=== PATIENT | male | born 1990 | race Caucasian/White ===

== ENCOUNTER 2017-02-27 20:00 | Emergency (ER) | payer OTHER ==
[~2017-02-27] VITALS: Ht 180.3 cm; Wt 82.5 kg
[2017-02-27 20:04] VITALS: Ht 180.3 cm; Wt 82.5 kg
[2017-02-27 21:25] LABS: URINE BLOOD (Dip) POC Negative (NEGATIVE)
--- NOTE | 2017-02-27 22:55 | RADRPT ---
PROCEDURE: Testicle ultrasound with power Doppler. CLINICAL INDICATION: Scrotal pain. TECHNIQUE: Multiple sonographic images of the scrotal region were obtained utilizing a linear arra y transducer with grayscale and color-flow and a Doppler imaging. The images were reviewed on a high -resolution PACS workstation. COMPARISON: None. FINDINGS: Bilateral testicles are normal in size, contour, echogenicity and echotexture. The right testicle m easures 3.8 x 2.3 x 2.4 cm and the left testicle measures 4.2 x 1.9 x 2.7 cm. Testicle arterial and venous flow are normal. There is no evidence of testicular mass or torsion. There is no evidence of orchitis. Bilateral epididymi are normal in size, contour, position and echogenicity. The right epididymis me asures 10.4 x 9.0 x 8.7 mm the left epididymis measures 9.1 x 10.0 x 8.5 mm. There is no evidence of epididymitis. There is no significant hydrocele or varicocele. Scrotal soft tissues are unremarka ble. IMPRESSION: Unremarkable testicular ultrasound. .Watson Burgos MD, MD Date Time Electronically viewed and signed by .Watson Burgos MD, MD on 02/27/2017 22:55 .T/
[2017-02-27] MEDS ORDERED: IBUP-1542 PO (23:10)
[2017-02-27 23:22] VITALS: BP 119/78; PULSE 75; RESP 18
--- NOTE | 2017-02-28 06:28 | ERD ---
ER Documentation Chief Complaint Date/Time DATE: 02/28/17 TIME: 06:24 Chief Complaint lower abd pain with groin area pain x 2 weeks HPI 26-year-old male complaining of left groin pain 2 weeks. Patient stated that the symptom initially present as "funny sensation" and discomfort. It has progressing to throbbing pain, and now sharp pain in the left groin. The pain comes and goes, lasting about 5-10 minutes each. There is no provocation of pain. Patient stated that he had a STD check 1 month ago, and was tested positive for chlamydia. Both he and his partner had received azithromycin 1 g p.o. treatment. Repeat testing 2 weeks ago was negative. Denies fever or chills. Denies dysuria. Denies penile discharge. ROS All systems reviewed and are negative except as per history of present illness. Medications Home Meds Active Scripts Ibuprofen* (Motrin*) 600 Mg Tab, 600 MG PO Q6H Y for PAIN AND OR ELEVATED TEMP, #30 TAB Prov:ELISEO CORTEZ DISPLAY MANAGER 02/27/17 Allergies Allergies: Coded Allergies: No Known Allergy (Unverified , 02/27/17) PMhx/Soc Medical and Surgical Hx: pt denies Medical Hx, pt denies Surgical Hx Hx Alcohol Use: No Hx Substance Use: No Hx Tobacco Use: No Smoking Status: Never smoker Physical Exam Vitals Vital Signs Date Time Temp Pulse Resp B/P Pulse Ox O2 Delivery O2 Flow Rate FiO2 02/27/17 23:22 75 18 119/78 99 Room Air 02/27/17 20:04 96.2 81 20 131/71 99 Physical Exam General: Well-developed, well-nourished, conscious and coherent, in no distress Skin: Warm and dry without rash, good texture and turgor Head: Normocephalic without evidence of trauma Eyes: Sclera and conjunctivae normal; pupils equal, round, and reactive to light; extraocular movements are intact Chest: Normal AP diameter. Good expansion without retractions. Nontender. Lungs are clear to auscultate bilaterally with good tidal volume Heart: Regular rate and rhythm. No murmur, rub, or gallops heard Abdomen: Soft and nontender without masses, guarding, or rebound. Bowel sounds are active. No hepatosplenomegaly : Uncircumsized male. Penis normal, no penile discharge. Normal scrotum, no mass noted. No inguinal hernia. Extremities: Full range of motion. Good strength bilaterally. No clubbing, cyanosis, or edema. Peripheral pulses are intact. Sensation intact Neuro: Alert and oriented 4, GCS 15. Cranial nerves grossly intact. Motor and sensory exams nonfocal. Moves all extremities. Speech clear. Gait normal Results 24 hrs Laboratory Tests Test 02/27/17 21:31 Bedside Urine pH (LAB) 6.0 Bedside Urine Protein (LAB) Trace Bedside Urine Glucose (UA) Negative Bedside Urine Ketones (LAB) Negative Bedside Urine Blood Negative Bedside Urine Nitrite (LAB) Negative Bedside Urine Leukocyte Esterase (L Negative PROCEDURE: Testicle ultrasound with power Doppler. CLINICAL INDICATION: Scrotal pain. TECHNIQUE: Multiple sonographic images of the scrotal region were obtained utilizing a linear array transducer with grayscale and color-flow and a Doppler imaging. The images were reviewed on a high-resolution PACS workstation. COMPARISON: None. FINDINGS: Bilateral testicles are normal in size, contour, echogenicity and echotexture. The right testicle measures 3.8 x 2.3 x 2.4 cm and the left testicle measures 4.2 x 1.9 x 2.7 cm. Testicle arterial and venous flow are normal. There is no evidence of testicular mass or torsion. There is no evidence of orchitis. Bilateral epididymi are normal in size, contour, position and echogenicity. The right epididymis measures 10.4 x 9.0 x 8.7 mm the left epididymis measures 9.1 x 10.0 x 8.5 mm. There is no evidence of epididymitis. There is no significant hydrocele or varicocele. Scrotal soft tissues are unremarkable. IMPRESSION: Unremarkable testicular ultrasound. .Watson Burgos MD, MD Date Time Electronically viewed and signed by .Watson Burgos MD, MD on 02/27/2017 22:55 .T/ CC: ELISEO CORTEZ. DISPLAY MANAGER Procedures/MDM Well-appearing 26-year-old male presenting with on and off for left groin pain 2 weeks. Scrotal ultrasound is negative for orchitis, epididymitis, or testicular torsion. Urine dip is negative for urinary tract infection. Since patient already being treated for chlamydia infection, I doubt that is because of patient's pain. I sent his urine out for repeat Chlamydia gonorrhea testing. At this point it is uncertain the cause of patient's pain. Patient given referral to [facility] for follow-up. Patient appears well, stable for discharge and outpatient management. Medical decision making shared with patient and family. Education provided to patient and family. Patient and family expressed understanding of the plan. Medications on discharge: Ibuprofen. Follow-up: Primary care provider in 2-3 days or return to ED if worse. Disclaimer: Inadvertent spelling and grammatical errors are likely due to EHR/ dictation software use and do not reflect on the overall quality of patient care. Also, please note that the electronic time recorded on this note does not necessarily reflect the actual time of the patient encounter. Departure Diagnosis: Primary Impression: Left groin pain Condition: Good Patient Instructions: Groin Strain Referrals: [facility] YOU HAVE RECEIVED A MEDICAL SCREENING EXAM AND THE RESULTS INDICATE THAT YOU DO NOT HAVE A CONDITION THAT REQUIRES URGENT TREATMENT IN THE EMERGENCY DEPARTMENT. FURTHER EVALUATION AND TREATMENT OF YOUR CONDITION CAN WAIT UNTIL YOU ARE SEEN IN YOUR DOCTORS OFFICE WITHIN THE NEXT 1-2 DAYS. IT IS YOUR RESPONSIBILITY TO MAKE AN APPOINTMENT FOR FOLOW-UP CARE. IF YOU HAVE A PRIMARY DOCTOR --you should call your primary doctor and schedule an appointment IF YOU DO NOT HAVE A PRIMARY DOCTOR YOU CAN CALL OUR PHYSICIAN REFERRAL HOTLINE AT IF YOU CAN NOT AFFORD TO SEE A PHYSICIAN YOU CAN CHOSE FROM THE FOLLOWING [facility] [address] [facility]. [facility] [address] [facility] [facility] [address] [facility] [facility] [address] [facility]. [facility] [address] [facility]. [facility]. [address] Additional Instructions: Call your primary care doctor TOMORROW for an appointment during the next 2-3 days.See the doctor sooner or return here if your condition worsens before your appointment time. ELISEO CORTEZ. SHAILESH Feb 28, 2017 06:28
[2017-03-01 16:09] LABS: URINE BLOOD (Dip) POC Negative (NEGATIVE)
== END 2017-02-27 23:23 | disposition home or self-care (01) ==
LOC: FTE 20:00
DX: R10.30 Lower abdominal pain, unspecified (principal)
CPT/HCPCS: 76870; 81003; 87591

== ENCOUNTER 2019-03-12 14:58 | Inpatient (IN) | payer OTHER ==
[~2019-03-12] VITALS: Ht 182.9 cm; Wt 88.4 kg
[~2019-03-12 14:58] MED LIST: ACET325T33 PO; AMOX500T PO; CEPH500C PO; IBUP-1542 PO; OXYC-438 PO
[2019-03-12 15:05] VITALS: Ht 182.9 cm; Wt 88.4 kg
[2019-03-12] MEDS ORDERED: SOD CHLORIDE 0.9% 1,000 ML IV STA (15:59)
[2019-03-12] MEDS ORDERED: FAMOTIDINE 20 MG TAB PO STA (15:59)
[2019-03-12] MEDS ORDERED: ONDANSETRON 4 MG INJ IV STA ×2 (15:59→17:45)
[2019-03-12] MEDS ORDERED: ACETAMINOPHEN 325 MG TAB PO ONE (16:00)
--- NOTE | 2019-03-12 16:06 | ERD ---
ER Documentation Chief Complaint Chief Complaint right lower quad pain x today;diarrhea; n/v HPI Patient is a 28 years old male with no known past medical history presenting to the ED for diffuse abdominal pain which is worse on the right lower quadrant pain, nausea, watery diarrhea, and single episode of NBNB emesis prior to ED vi sit. Patient admits to visiting [place] 3 weeks ago and reports eating anything and everything. Patient reports the symptoms came about 2 weeks ago after returning back from [place]. Patient reports the symptoms are relatively mild however symptoms worsened as of yesterday. Patient admits to getting a dental procedure 3 days ago and is currently on amoxicillin. Patient admits to new onset of fever and chills as of yesterday. Denies constipation, diarrhea, hematochezia, flank pain, pyrosis, night sweats. ROS All systems reviewed and are negative except as per history of present illness. Medications Home Meds Active Scripts Ibuprofen* (Motrin*) 600 Mg Tab, 600 MG PO Q6H PRN for PAIN AND OR ELEVATED TEMP, #30 TAB Prov:ELISEO CORTEZ CAPACITY ANALYST 02/27/17 Allergies Allergies: Coded Allergies: No Known Allergy (Unverified , 02/27/17) PMhx/Soc History of Surgery: No Anesthesia Reaction: No Hx Neurological Disorder: No Hx Respiratory Disorders: No Hx Cardiac Disorders: No Hx Psychiatric Problems: No Hx Miscellaneous Medical Probl: No Hx Alcohol Use: No Hx Substance Use: No Hx Tobacco Use: No Smoking Status: Unknown if ever smoked FmHx Family History: No diabetes, No coronary disease, No other Physical Exam Vitals Vital Signs Date Temp Pulse Resp B/P (MAP) Pulse Ox O2 O2 Flow FiO2 Time Delivery Rate 03/12/19 101.8 16:10 03/12/19 100.0 100 18 136/93 98 15:05 (107) Physical Exam Const: Patient is in some mild distress covering his abdomen with his left arm while lying on the exam bed. Head: Atraumatic Resp: Clear to auscultation bilaterally Cardio: Regular rate and rhythm, no murmurs Abd: Mildly rigid, diffuse tenderness with are RLQ worse, non distended. Normal bowel sounds. Mild guarding, no rebound tenderness, no Waldron sign, no Rovsing sign. Back: No midline or flank tenderness. Negative CVAT. Psych: Normal Mood and Affect Result Diagram: 03/12/19 1606 03/12/19 1606 Results 24 hrs Laboratory Tests Test 03/12/19 16:06 03/12/19 16:21 White Blood Count 14.3 10^3/ul Red Blood Count 5.25 10^6/ul Hemoglobin 16.6 g/dl Hematocrit 47.2 % Mean Corpuscular Volume 89.9 fl Mean Corpuscular Hemoglobin 31.6 pg Mean Corpuscular Hemoglobin Concent 35.2 g/dl Red Cell Distribution Width 11.9 % Platelet Count 142 10^3/UL Mean Platelet Volume 8.7 fl Immature Granulocytes % 0.300 % Neutrophils % 90.2 % Lymphocytes % 7.5 % Monocytes % 1.8 % Eosinophils % 0.1 % Basophils % 0.1 % Nucleated Red Blood Cells % 0.0 /100WBC Immature Granulocytes # 0.050 10^3/ul Neutrophils # 12.9 10^3/ul Lymphocytes # 1.1 10^3/ul Monocytes # 0.3 10^3/ul Eosinophils # 0.0 10^3/ul Basophils # 0.0 10^3/ul Nucleated Red Blood Cells # 0.0 10^3/ul Sodium Level 140 mmol/L Potassium Level 3.7 mmol/L Chloride Level 101 mmol/L Carbon Dioxide Level 29 mmol/L Anion Gap 10 Blood Urea Nitrogen 17 mg/dl Creatinine 1.02 mg/dl Est Glomerular Filtrat Rate mL/min > 60 mL/min Glucose Level 118 mg/dl Calcium Level 9.8 mg/dl Total Bilirubin 0.6 mg/dl Direct Bilirubin 0.00 mg/dl Indirect Bilirubin 0.6 mg/dl Aspartate Amino Transf (AST/SGOT) 52 IU/L Alanine Aminotransferase (ALT/SGPT) 97 IU/L Alkaline Phosphatase 67 IU/L Total Protein 8.8 g/dl Albumin 5.0 g/dl Globulin 3.80 g/dl Albumin/Globulin Ratio 1.31 Lipase 111 U/L Bedside Urine pH (LAB) 6.0 Bedside Urine Protein (LAB) Negative Bedside Urine Glucose (UA) Negative Bedside Urine Ketones (LAB) Negative Bedside Urine Blood Trace-intact Bedside Urine Nitrite (LAB) Negative Bedside Urine Leukocyte Esterase (L Negative Current Medications Medications Dose Sig/Angelo Start Time Status Last (Trade) Ordered Route PRN Stop Time Admin Dose Reason Admin Sodium 1,000 ml @ Q1H STAT 03/12/19 DC 03/12/19 Chloride 1,000 mls/hr IV 15:59 03/12/19 16:10 16:58 Ondansetron 4 mg ONCE STAT 03/12/19 DC 03/12/19 HCl (Zofran IV 15:59 03/12/19 16:10 Inj) 16:00 Famotidine 20 mg ONCE STAT 03/12/19 DC 03/12/19 (Pepcid) PO 15:59 03/12/19 16:10 16:00 650 mg ONCE ONCE 03/12/19 DC 03/12/19 Acetaminophen PO 16:00 03/12/19 16:10 (Tylenol 16:01 Tab) IV Flush 10 ml STK-MED 03/12/19 DC 03/12/19 (NS 10 ml) ONCE .ROUTE 17:04 03/12/19 17:19 17:05 Sodium 100 ml @ ud STK-MED 03/12/19 DC 03/12/19 Chloride ONCE .ROUTE 17:04 03/12/19 17:19 17:05 Iohexol 150 ml STK-MED 03/12/19 DC 03/12/19 (Omnipaque ONCE .ROUTE 17:04 03/12/19 17:19 300mg/ ml) 17:05 Procedures/MDM Patient was seen and evaluated for abdominal pain. CBC, CMP, lipase revealed mildly elevated leukocytosis otherwise unremarkable. Abdominal ultrasound revealed Ultrasound findings suspicious for acute appendicitis. CT Abdomen& Pelvis w/ Contrast revealed The appendix 1.4 cm is enlarged, measuring 14 mm in diameter. There is a 6.5 mm appendicolith in the proximal appendiceal lumen. Periappendiceal inflammation noted. The findings are consistent with acute appendicitis. No appendiceal perforation or periappendiceal abscess demonstrated. Patient was initiated on IV fluids, Zofran IV, Pepcid IV, and Tylenol p.o. in ED. Post CT results, consultation with Dr. Carrizales lead to prompt Admission with Morphine 4mg IV, Zofran 4mg, IV and zosyn IV. Patient report last mean was at 10AM, which is a single protein cookie. Transfer of care to Main ED for admission. Departure Diagnosis: Primary Impression: Appendicitis Appendicitis type: acute appendicitis Acute appendicitis type: other Qualified Codes: K35.890 - Other acute appendicitis without perforation or gangrene Condition: Stable Patient Instructions: Abdominal Pain, Possible Appendicitis [Male] Referrals: [facility] DENNIS WARREN PA-C Mar 12, 2019 16:06
[2019-03-12] MEDS ORDERED: IOHEXOL 300MG/ML 150 ML BTL ONE (17:04)
[2019-03-12] MEDS ORDERED: SOD CHLORIDE 0.9% 100 ML ONE (17:04)
[2019-03-12] MEDS ORDERED: morphine 4 MG/ML VIAL IV STA (17:45)
[2019-03-12] MEDS ORDERED: PIPER-TAZO 3.375 GM IV (PMX) 100 ML IVPB ONE (18:00)
[2019-03-12] MEDS ORDERED: ACETAMINOPHEN 325 MG TAB PO PRN (18:30)
[2019-03-12] MEDS ORDERED: ONDANSETRON 4 MG INJ IV PRN (18:30)
--- NOTE | 2019-03-12 18:42 | HP ---
Date/Time of Note Date/Time of Note DATE: 03/12/19 TIME: 18:40 Assessment/Plan VTE Prophylaxis SCD contraindicated: low risk/ambulating Pharmacological prophylaxis: NA/contraindicated Pharm contraindication: low risk/ambulating Lines/Catheters IV [facility]ter [facility]from [facility]ine [facility] Assessment/Plan Hospital Course Chief complaint abdominal pain History present illness Insidious onset 1 day of sharp right quadrant pain. No known aggravating factors. Aggravated with movement. No previous similar discomfort in the past. Associated nausea and chills. Denies any injury. 2 weeks ago patient returned from [place]. He has had loose bowel movements. No hematochezia. He may have swam in a pond and ingested some of the pond water. No ill contacts/ ill foods. Additionally is has had dysuria but visited his primary. Testing was apparently negative for blood 3 days ago had wisdom teeth removed. He has had 3 days of antibiotics amoxicillin. He also feels bloated. Bowel movements were 5 in quantity today. Tried Pepto-Bismol ER: Stable vital signs Past medical history None Past surgical history tonsillectomy Social history To be determined Review of systems Neuro: No headache no loss speech vision Car vascular: No chest pain no dyspnea no edema lungs Lungs: No cough no wheezing no fever Abdomen: Pain vomiting chills diarrhea bloating Urine: Recent dysuria no hematuria burning duration Endocrine no previous diabetes dyslipidemia or thyroid dysfunction Musculoskeletal: No gait dysfunction rash or itching Constitutional: Fever chills no weight loss Heme: No hematochezia melena hematuria Psychiatry: Patient has a mood advancing agitation anxiety depression Physical exam No pallor adenopathy or icterus Regular no murmur gallop Clear Bowel sounds diminished tender mostly right abdomen no rigidity rebound guarding No edema rash Assessment and plan 1. Abdominal pain suspected appendectomy, stable consult general surgery Low perioperative risk, may proceed forward to surgery from medical standpoint 2. Diarrhea. likely benign antibiotic induced. However will rule out C. difficile 3. Recent gastroenteritis? Consider viral or amoeba associated Result Diagram: 03/12/19 1606 03/12/19 1606 Results 24hrs Laboratory Tests Test 03/12/19 16:06 03/12/19 16:21 White Blood Count 14.3 H Red Blood Count 5.25 Hemoglobin 16.6 Hematocrit 47.2 Mean Corpuscular Volume 89.9 Mean Corpuscular Hemoglobin 31.6 Mean Corpuscular Hemoglobin Concent 35.2 Red Cell Distribution Width 11.9 Platelet Count 142 Mean Platelet Volume 8.7 Immature Granulocytes % 0.300 Neutrophils % 90.2 H Lymphocytes % 7.5 L Monocytes % 1.8 Eosinophils % 0.1 Basophils % 0.1 Nucleated Red Blood Cells % 0.0 Immature Granulocytes # 0.050 H Neutrophils # 12.9 H Lymphocytes # 1.1 Monocytes # 0.3 Eosinophils # 0.0 Basophils # 0.0 Nucleated Red Blood Cells # 0.0 Sodium Level 140 Potassium Level 3.7 Chloride Level 101 Carbon Dioxide Level 29 Anion Gap 10 Blood Urea Nitrogen 17 Creatinine 1.02 Est Glomerular Filtrat Rate mL/min > 60 Glucose Level 118 Calcium Level 9.8 Total Bilirubin 0.6 Direct Bilirubin 0.00 Indirect Bilirubin 0.6 Aspartate Amino Transf (AST/SGOT) 52 H Alanine Aminotransferase (ALT/SGPT) 97 H Alkaline Phosphatase 67 Total Protein 8.8 H Albumin 5.0 H Globulin 3.80 H Albumin/Globulin Ratio 1.31 Lipase 111 Bedside Urine pH (LAB) 6.0 Bedside Urine Protein (LAB) Negative Bedside Urine Glucose (UA) Negative Bedside Urine Ketones (LAB) Negative Bedside Urine Blood Trace-intact H Bedside Urine Nitrite (LAB) Negative Bedside Urine Leukocyte Esterase (L Negative HPI/ROS Admit Date/Time Admit Date/Time PMH/Family/Social Past Medical History Medications Current Medications Ondansetron HCl (Zofran Inj) 4 mg BRIDGE ORDER PRN IV NAUSEA/VOMITING; Start 03/12/19 at 18:30; Stop 03/13/19 at 18:29 Acetaminophen (Tylenol Tab) 650 mg ER BRIDGE PRN PO .MILD PAIN 1-3 OR TEMP; Start 03/12/19 at 18:30; Stop 03/13/19 at 18:29 Coded Allergies: No Known Allergy (Unverified , 02/27/17) Social History Smoking Status: Never smoker Exam/Review of Systems Vital Signs Vitals Vital Signs Date Temp Pulse Resp B/P (MAP) Pulse Ox O2 O2 Flow FiO2 Time Delivery Rate 03/12/19 101.8 16:10 03/12/19 100 18 136/93 98 15:05 (107) DESI TINAJERO MD Mar 12, 2019 18:41
[2019-03-12 21:55] VITALS: BP 121/69; PULSE 94; RESP 19
[2019-03-12] MEDS: SOD CHLORIDE 0.9% 1,000 ML IV SCH (22:55)
[2019-03-13] VITALS (15 sets, daily range): BP systolic 105–134; BP diastolic 60–75; PULSE 66–83; RESP 10–23
[2019-03-13] MEDS ORDERED: ACETAMINOPHEN 325 MG TAB PO PRN (02:00)
[2019-03-13] MEDS: PIPER-TAZO 3.375 GM IV (PMX) 100 ML IVPB SCH ×5 (02:13→23:42)
[2019-03-13] MEDS: SOD CHLORIDE 0.9% 1,000 ML IV SCH ×3 (06:30→18:05)
[2019-03-13] MEDS ORDERED: PROPOFOL 20 ML ONE (07:21)
[2019-03-13] MEDS ORDERED: ONDANSETRON 4 MG INJ ONE (07:21)
[2019-03-13] MEDS ORDERED: FENTAnyl 50 MCG/ML VIAL ONE ×2 (07:21→08:15)
[2019-03-13] MEDS ORDERED: NEOSTIGMINE 3 MG/3 ML SYRINGE ONE (07:21)
[2019-03-13] MEDS ORDERED: CEFAZOLIN 1 GM INJ ONE (07:21)
[2019-03-13] MEDS ORDERED: ROCURONIUM 50 MG INJ ONE (07:21)
[2019-03-13] MEDS ORDERED: MIDAZOLAM 1 MG/ML 2 ML INJ ONE (07:21)
[2019-03-13] MEDS ORDERED: DEXAMETHASONE 4 MG/ML 5 ML INJ ONE (07:21)
[2019-03-13] MEDS ORDERED: GLYCOPYRROLATE 0.4 MG INJ ONE (07:21)
--- NOTE | 2019-03-13 07:41 | CONS ---
Assessment/Plan Assessment/Plan Assessment/Plan (Daily) Acute appendicitis Plan: Laparoscopic appendectomy, possible open. I have discussed the procedure, indications, outcomes, alternatives and risks in detail with the patient who has an excellent understanding of the nature of his situation and agrees to the proposed plan of therapy as outlined. Consultation Date/Type/Reason Admit Date/Time Date of Consultation: Mar 13, 2019 Type of Consult General surgery Reason for Consultation Acute appendicitis Date/Time of Note DATE: 03/13/19 TIME: 07:38 Hx of Present Illness Patient is an otherwise healthy 28-year-old gentleman who presents with a 1 day history of abdominal pain which intensified in severity than localized to the right lower quadrant. He was noted in the emergency room to have an elevated white blood cell count, a tender right lower quadrant, and a CT compatible with acute appendicitis. He has had no fevers chills or systemic symptoms Review of systems HEENT: Unremarkable Pulmonary: No history of asthma, pneumonia or shortness of breath Cardiac: No history of chest pain, IA or arrhythmia Abdomen: As in the HPI Extremities: Unremarkable Past Medical History Medical History: no pertinent history Home Meds Active Scripts Ibuprofen* (Motrin*) 600 Mg Tab, 600 MG PO Q6H PRN for PAIN AND OR ELEVATED TEMP, #30 TAB Prov:ELISEO CORTEZ RESEARCH TEST ENGINE OPERATOR 02/27/17 Reported Medications Amoxicillin Trihydrate (Amoxicillin) 500 Mg Tablet, 500 MG PO Q8, #30 TAB 03/12/19 Medications Current Medications Ondansetron HCl (Zofran Inj) 4 mg BRIDGE ORDER PRN IV NAUSEA/VOMITING; Start 03/12/19 at 18:30; Stop 03/13/19 at 18:29 Acetaminophen (Tylenol Tab) 650 mg ER BRIDGE PRN PO .MILD PAIN 1-3 OR TEMP; Start 03/12/19 at 18:30; Stop 03/13/19 at 18:29 Sodium Chloride 1,000 ml @ 125 mls/hr Q8H IV Last administered on 03/13/19at 06:30; Admin Dose 125 MLS/HR; Start 03/12/19 at 23:00 Piperacillin Sod/ Tazobactam Sod 100 ml @ 200 mls/hr Q6 IVPB Last administered on 03/13/19at 06:29; Admin Dose 200 MLS/HR; Start 03/13/19 at 02:00 Acetaminophen (Tylenol Tab) 650 mg Q6H PRN PO MILD PAIN(1-3)OR ELEVATED TEMP Last administered on 03/13/19at 02:11; Admin Dose 650 MG; Start 03/13/19 at 02:00 Allergies: Coded Allergies: No Known Allergy (Unverified , 02/27/17) Past Surgical History Past Surgical Hx: no surgical history Family History Significant Family History: no pertinent family hx Social History Smoking Status: Never smoker Exam/Review of Systems Exam Vitals Vital Signs Date Temp Pulse Resp B/P (MAP) Pulse Ox O2 O2 Flow FiO2 Time Delivery Rate 03/13/19 99.8 03:40 03/13/19 83 20 105/60 99 01:50 (75) 03/12/19 Room Air 21:38 Intake and Output 03/12/19 03/12/19 03/13/19 1515:00 23:00 07:00 IntakeIntake Total 1200 ml 1200 ml BalanceBalance 1200 ml 1200 ml Constitutional: alert, oriented Psych: no complaints Head: normocephalic ENMT: nl external ears & nose Neck: supple Respiratory: clear to auscultation Gastrointestinal: tender (Tender right lower quadrant with slight guarding but no rebound) Musculoskeletal: nl extremities to inspection Extremities: normal pulses Results Result Diagram: 03/13/19 0502 03/13/19 0502 Results 24hrs Laboratory Tests Test 03/12/19 16:06 03/12/19 16:21 03/13/19 05:02 White Blood Count 14.3 H 14.2 H Red Blood Count 5.25 4.90 Hemoglobin 16.6 15.6 Hematocrit 47.2 44.2 Mean Corpuscular Volume 89.9 90.2 Mean Corpuscular Hemoglobin 31.6 31.8 Mean Corpuscular 35.2 35.3 Hemoglobin Concent Red Cell Distribution Width 11.9 12.2 Platelet Count 142 130 L Mean Platelet Volume 8.7 9.5 Immature Granulocytes % 0.300 0.500 H Neutrophils % 90.2 H 86.0 H Lymphocytes % 7.5 L 8.1 L Monocytes % 1.8 5.3 Eosinophils % 0.1 0.0 Basophils % 0.1 0.1 Nucleated Red Blood Cells % 0.0 0.0 Immature Granulocytes # 0.050 H 0.070 H Neutrophils # 12.9 H 12.2 H Lymphocytes # 1.1 1.2 Monocytes # 0.3 0.8 Eosinophils # 0.0 0.0 Basophils # 0.0 0.0 Nucleated Red Blood Cells # 0.0 0.0 Sodium Level 140 137 Potassium Level 3.7 3.4 L Chloride Level 101 100 Carbon Dioxide Level 29 31 Anion Gap 10 6 Blood Urea Nitrogen 17 12 Creatinine 1.02 1.02 Est Glomerular Filtrat Rate mL/min > 60 > 60 Glucose Level 118 108 Calcium Level 9.8 8.6 Total Bilirubin 0.6 1.3 Direct Bilirubin 0.00 0.00 Indirect Bilirubin 0.6 1.3 H Aspartate Amino Transf (AST/SGOT) 52 H 38 Alanine 97 H 78 H Aminotransferase (ALT/SGPT) Alkaline Phosphatase 67 60 Total Protein 8.8 H 7.5 # Albumin 5.0 H 4.1 Globulin 3.80 H 3.40 H Albumin/Globulin Ratio 1.31 1.20 Lipase 111 Bedside Urine pH (LAB) 6.0 Bedside Urine Protein (LAB) Negative Bedside Urine Glucose (UA) Negative Bedside Urine Ketones (LAB) Negative Bedside Urine Blood Trace-intact H Bedside Urine Nitrite (LAB) Negative Bedside Urine Leukocyte Esterase Negative (L Prothrombin Time 14.8 Prothrombin Time Ratio 1.2 INR International Normalized Ratio 1.15 Phosphorus Level 3.8 Magnesium Level 1.4 L Thyroid Stimulating Hormone (TSH) 1.010 Hepatitis B Surface Antigen NEGATIVE Hepatitis B Core Total Antibody NEGATIVE Hepatitis C Antibody NEGATIVE Medications Medication Current Medications Ondansetron HCl (Zofran Inj) 4 mg BRIDGE ORDER PRN IV NAUSEA/VOMITING; Start 03/12/19 at 18:30; Stop 03/13/19 at 18:29 Acetaminophen (Tylenol Tab) 650 mg ER BRIDGE PRN PO .MILD PAIN 1-3 OR TEMP; Sta rt 03/12/19 at 18:30; Stop 03/13/19 at 18:29 Sodium Chloride 1,000 ml @ 125 mls/hr Q8H IV Last administered on 03/13/19at 06:30; Admin Dose 125 MLS/HR; Start 03/12/19 at 23:00 Piperacillin Sod/ Tazobactam Sod 100 ml @ 200 mls/hr Q6 IVPB Last administered on 03/13/19at 06:29; Admin Dose 200 MLS/HR; Start 03/13/19 at 02:00 Acetaminophen (Tylenol Tab) 650 mg Q6H PRN PO MILD PAIN(1-3)OR ELEVATED TEMP Last administered on 03/13/19at 02:11; Admin Dose 650 MG; Start 03/13/19 at 02:00 JONNA GUERRERO MD Mar 13, 2019 07:41
--- NOTE | 2019-03-13 08:06 | PREAC ---
Date/Time of Note Date/Time of Note DATE: 03/13/19 TIME: 08:05 Anesthesia Eval and Record Evaluation Time Pre-Procedure Interview DATE: 03/13/19 TIME: 08:05 Age 28 Sex male NPO: 8 hrs Preoperative diagnosis ACUTE APPENDICITIS Planned procedure LAP APPENDECTOMY Past Medical History Past Medical History: None Surgery & Anesthesia Issues No known issue Meds Anticoagulation: No Beta Juan Miguel within 24 hr: No Reason Beta Juan Miguel not given: Pt. not on B-Juan Miguel Active Scripts Ibuprofen* (Motrin*) 600 Mg Tab, 600 MG PO Q6H PRN for PAIN AND OR ELEVATED TEM P, #30 TAB Prov:DIEGOELISEO [place] THREAD GRINDER TOOL 02/27/17 Reported Medications Amoxicillin Trihydrate (Amoxicillin) 500 Mg Tablet, 500 MG PO Q8, #30 TAB 03/12/19 Current Medications Ondansetron HCl (Zofran Inj) 4 mg BRIDGE ORDER PRN IV NAUSEA/VOMITING; Start 03/12/19 at 18:30; Stop 03/13/19 at 18:29 Acetaminophen (Tylenol Tab) 650 mg ER BRIDGE PRN PO .MILD PAIN 1-3 OR TEMP; Start 03/12/19 at 18:30; Stop 03/13/19 at 18:29 Sodium Chloride 1,000 ml @ 125 mls/hr Q8H IV Last administered on 03/13/19at 06:30; Admin Dose 125 MLS/HR; Start 03/12/19 at 23:00 Piperacillin Sod/ Tazobactam Sod 100 ml @ 200 mls/hr Q6 IVPB Last administered on 03/13/19at 06:29; Admin Dose 200 MLS/HR; Start 03/13/19 at 02:00 Acetaminophen (Tylenol Tab) 650 mg Q6H PRN PO MILD PAIN(1-3)OR ELEVATED TEMP Last administered on 03/13/19at 02:11; Admin Dose 650 MG; Start 03/13/19 at 02:00 Meds reviewed: Yes Allergies Coded Allergies: No Known Allergy (Unverified , 02/27/17) Allergies Reviewed: Yes Labs/Studies Labs Reviewed: Reviewed by anesthesiologist Result Diagram: 03/13/19 0502 03/13/19 0502 Laboratory Tests 03/13/19 05:02 test: N/A Pre-procedure Exam Last vitals Vital Signs Date Temp Pulse Resp B/P (MAP) Pulse Ox O2 O2 Flow FiO2 Time Delivery Rate 03/13/19 99.8 03:40 03/13/19 83 20 105/60 99 01:50 (75) 03/12/19 Room Air 21:38 Airway: Adequate mouth opening, Adequate thyromental dist Mallampati: Mallampati II Teeth: Normal Lung: Normal Heart: Normal ASA Physical Status ASA physical status: 1 Emergency: E Planned Anesthetic General/MAC: MAC Planned Pain Management Parenteral pain med Pre-operative Attestations Prior to commencing anesthesia and surgery, the patient was re-evaluated, there was verification of: *The patient's identity *The results of appropriate recent lab work and preoperative vital signs *The above evaluation not changing prior to induction *Anesthetic plan, risk benefits, alternative and complications discussed with patient/family; questions answered; patient/family understands, accepts and wishes to proceed. Emeka Saenz M.D. Mar 13, 2019 08:06
[2019-03-13] MEDS ORDERED: BUPIVACAINE 0.25%/EPI (SDV) 10 ML INJ ONE (08:08)
[2019-03-13] MEDS ORDERED: HYDROmorphONE 1 MG/5 ML IV SYRINGE IV ONE (08:46)
--- NOTE | 2019-03-13 08:49 | PAC ---
Date/Time of Note Date/Time of Note DATE: 03/13/19 TIME: 08:49 Post-Anesthesia Notes Post-Anesthesia Note Last documented vital signs Vital Signs Date Temp Pulse Resp B/P (MAP) Pulse Ox O2 O2 Flow FiO2 Time Delivery Rate 03/13/19 99.0 08:47 03/13/19 83 20 105/60 99 01:50 (75) 03/12/19 Room Air 21:38 Activity: WNL Respiratory function: WNL Cardiovascular function: WNL Mental status: Baseline Pain reasonably controlled: Yes Hydration appropriate: Yes Nausea/Vomiting absent: Yes Emeka Saenz M.D. Mar 13, 2019 08:49
[2019-03-13] MEDS: HYDROmorphONE 1 MG/5 ML IV SYRINGE IV PRN ×2 (08:58→09:09)
--- NOTE | 2019-03-13 08:59 | OPR ---
Date/Time of Note Date/Time of Note DATE: 03/13/19 TIME: 08:53 Operative Report Procedure Date: Mar 13, 2019 Preoperative Diagnosis Acute appendicitis Postoperative Diagnosis Acute appendicitis with localized peritonitis Operation/Procedure Performed Laparoscopic appendectomy Surgeon Jonna Guerrero MD Chief Revenue Officer None Anesthesia Type: general Anesthesiologist: Emeka Saenz M.D. Estimated Blood Loss: minimal Transfusion none Specimen Appendix Grafts/Implants none Tubes/Drains None Complications none Pt Condition Post Procedure: stable Disposition: PACU Indications Acute appendicitis Procedure Description After satisfactory general endotracheal anesthesia was achieved, the abdomen was prepped and draped in the usual fashion. The abdomen was insufflated with carbon dioxide through an umbilical Veress needle to 15 mmHg pressure. The Veress needle was removed and the umbilical incision extended to 5 mm which a 5 mm trocar was placed. A 5 mm 0 degree lens was placed. Laparoscopy showed an acutely inflamed intraperitoneal appendix with mild localized peritonitis. Under direct visualization a 5 mm suprapubic trocar was placed as well as a 12 mm left lower quadrant trocar. A window was made in the mesoappendix, through which a stapler was placed across the base of the cecum, closed and fired, disconnecting the appendix from the cecum. A second firing of the stapler across the mesoappendix fully freed the appendix which was then placed intact into an Endo Catch removed via the left lower quadrant port. Hemostasis of both staple lines was total and irrigant returned clear. 2 sutures of 0 Vicryl were placed at the 12 mm fascia with the assistance of a john-close device. The abdomen was then desufflated and the trochars were removed. Fascial sutures were then tied down. The skin punctures were infiltrated with 30 cc of point 2 5% Marcaine with epinephrine and closed with maya. Sponge and needle counts were reported as correct x2. JONNA GUERRERO MD Mar 13, 2019 08:59
[2019-03-13] MEDS ORDERED: MIDAZOLAM 1 MG/ML 2 ML INJ IV PRN (09:00)
[2019-03-13] MEDS ORDERED: ONDANSETRON 4 MG INJ IV PRN ×2 (09:00)
[2019-03-13] MEDS ORDERED: morphine 2 MG INJ IV PRN (09:00)
[2019-03-13] MEDS ORDERED: LABETALOL HCL 20MG INJ IV PRN (09:00)
[2019-03-13] MEDS ORDERED: MEPERIDINE 25 MG INJ IV PRN (09:00)
[2019-03-13] MEDS ORDERED: TRIMETHOBENZAMIDE 100 MG/ML VIAL IM PRN (09:00)
[2019-03-13] MEDS ORDERED: FENTAnyl 50 MCG/ML VIAL IV PRN ×3 (09:00)
[2019-03-13] MEDS ORDERED: OXYCODONE/ACETAMINOPHEN (5/325) TAB PO PRN ×3 (09:00)
[2019-03-13] MEDS ORDERED: DIPHENHYDRAMINE 50 MG INJ IV PRN (09:00)
[2019-03-13] MEDS ORDERED: ALBUTEROL 0.083% (NEB) 2.5 MG/3 ML AMP HHN PRN (09:00)
[2019-03-13] MEDS ORDERED: HYDROmorphONE 1 MG/5 ML IV SYRINGE IV PRN ×2 (09:00)
[2019-03-13] MEDS ORDERED: IPRATROPIUM (NEB) 0.5 MG/2.5 ML AMP HHN PRN (09:00)
[2019-03-13] MEDS ORDERED: hydrALAzine 20 MG INJ IV PRN (09:00)
[2019-03-13] MEDS ORDERED: EPHEDrine 25 MG/5 ML SYG IV PRN (09:00)
[2019-03-13] MEDS ORDERED: POTASSIUM CHLORIDE 20 MEQ POWDER FOR ORAL SOLN PO ONE (15:30)
[2019-03-13] MEDS ORDERED: MAGNESIUM SULFATE 2 GM/50 ML 50 ML IVPB ONE (15:30)
--- NOTE | 2019-03-13 16:06 | PN ---
Date/Time of Note Date/Time of Note DATE: 03/13/19 TIME: 16:03 Assessment/Plan VTE Prophylaxis SCD applied (from Nsg): Yes SCD contraindicated: low risk/ambulating Pharmacological prophylaxis: NA/contraindicated Pharm contraindication: low risk/ambulating Lines/Catheters IV Catheter Type (from Nrsg): Peripheral IV Urinary Cath still in place: No Assessment/Plan Hospital Course A/P 1. Ac appendictis stable sp lap selena; rx pain; home soon 2. Diarrhea. likely benign antibiotic induced. Doubt, but will rule out c diff 3. Recent gastroenteritis? Consider viral or amoeba associated S; mod pain; no dyspnea or fever O: vss PE No pallor Reg no mrg Clear Bs dimin, tender. no r/r/g No edema rash Result Diagram: 03/13/19 0502 03/13/19 0502 Results 24hrs Laboratory Tests Test 03/12/19 16:06 03/12/19 16:21 03/13/19 05:02 White Blood Count 14.3 H 14.2 H Red Blood Count 5.25 4.90 Hemoglobin 16.6 15.6 Hematocrit 47.2 44.2 Mean Corpuscular Volume 89.9 90.2 Mean Corpuscular Hemoglobin 31.6 31.8 Mean Corpuscular 35.2 35.3 Hemoglobin Concent Red Cell Distribution Width 11.9 12.2 Platelet Count 142 130 L Mean Platelet Volume 8.7 9.5 Immature Granulocytes % 0.300 0.500 H Neutrophils % 90.2 H 86.0 H Lymphocytes % 7.5 L 8.1 L Monocytes % 1.8 5.3 Eosinophils % 0.1 0.0 Basophils % 0.1 0.1 Nucleated Red Blood Cells % 0.0 0.0 Immature Granulocytes # 0.050 H 0.070 H Neutrophils # 12.9 H 12.2 H Lymphocytes # 1.1 1.2 Monocytes # 0.3 0.8 Eosinophils # 0.0 0.0 Basophils # 0.0 0.0 Nucleated Red Blood Cells # 0.0 0.0 Sodium Level 140 137 Potassium Level 3.7 3.4 L Chloride Level 101 100 Carbon Dioxide Level 29 31 Anion Gap 10 6 Blood Urea Nitrogen 17 12 Creatinine 1.02 1.02 Est Glomerular Filtrat Rate mL/min > 60 > 60 Glucose Level 118 108 Calcium Level 9.8 8.6 Total Bilirubin 0.6 1.3 Direct Bilirubin 0.00 0.00 Indirect Bilirubin 0.6 1.3 H Aspartate Amino Transf (AST/SGOT) 52 H 38 Alanine 97 H 78 H Aminotransferase (ALT/SGPT) Alkaline Phosphatase 67 60 Total Protein 8.8 H 7.5 # Albumin 5.0 H 4.1 Globulin 3.80 H 3.40 H Albumin/Globulin Ratio 1.31 1.20 Lipase 111 Bedside Urine pH (LAB) 6.0 Bedside Urine Protein (LAB) Negative Bedside Urine Glucose (UA) Negative Bedside Urine Ketones (LAB) Negative Bedside Urine Blood Trace-intact H Bedside Urine Nitrite (LAB) Negative Bedside Urine Leukocyte Esterase Negative (L Prothrombin Time 14.8 Prothrombin Time Ratio 1.2 INR International Normalized Ratio 1.15 Phosphorus Level 3.8 Magnesium Level 1.4 L Thyroid Stimulating Hormone (TSH) 1.010 Hepatitis B Surface Antigen NEGATIVE Hepatitis B Core Total Antibody NEGATIVE Hepatitis C Antibody NEGATIVE Exam/Review of Systems Exam Vitals Vital Signs Date Temp Pulse Resp B/P (MAP) Pulse Ox O2 O2 Flow FiO2 Time Delivery Rate 03/13/19 99.3 66 16 112/62 94 Room Air 14:28 (79) Intake and Output 03/12/19 03/12/19 03/13/19 1515:00 23:00 07:00 IntakeIntake Total 1200 ml 1200 ml BalanceBalance 1200 ml 1200 ml Results Results 24hrs Laboratory Tests Test 03/12/19 16:06 03/12/19 16:21 03/13/19 05:02 White Blood Count 14.3 H 14.2 H Red Blood Count 5.25 4.90 Hemoglobin 16.6 15.6 Hematocrit 47.2 44.2 Mean Corpuscular Volume 89.9 90.2 Mean Corpuscular Hemoglobin 31.6 31.8 Mean Corpuscular 35.2 35.3 Hemoglobin Concent Red Cell Distribution Width 11.9 12.2 Platelet Count 142 130 L Mean Platelet Volume 8.7 9.5 Immature Granulocytes % 0.300 0.500 H Neutrophils % 90.2 H 86.0 H Lymphocytes % 7.5 L 8.1 L Monocytes % 1.8 5.3 Eosinophils % 0.1 0.0 Basophils % 0.1 0.1 Nucleated Red Blood Cells % 0.0 0.0 Immature Granulocytes # 0.050 H 0.070 H Neutrophils # 12.9 H 12.2 H Lymphocytes # 1.1 1.2 Monocytes # 0.3 0.8 Eosinophils # 0.0 0.0 Basophils # 0.0 0.0 Nucleated Red Blood Cells # 0.0 0.0 Sodium Level 140 137 Potassium Level 3.7 3.4 L Chloride Level 101 100 Carbon Dioxide Level 29 31 Anion Gap 10 6 Blood Urea Nitrogen 17 12 Creatinine 1.02 1.02 Est Glomerular Filtrat Rate mL/min > 60 > 60 Glucose Level 118 108 Calcium Level 9.8 8.6 Total Bilirubin 0.6 1.3 Direct Bilirubin 0.00 0.00 Indirect Bilirubin 0.6 1.3 H Aspartate Amino Transf (AST/SGOT) 52 H 38 Alanine 97 H 78 H Aminotransferase (ALT/SGPT) Alkaline Phosphatase 67 60 Total Protein 8.8 H 7.5 # Albumin 5.0 H 4.1 Globulin 3.80 H 3.40 H Albumin/Globulin Ratio 1.31 1.20 Lipase 111 Bedside Urine pH (LAB) 6.0 Bedside Urine Protein (LAB) Negative Bedside Urine Glucose (UA) Negative Bedside Urine Ketones (LAB) Negative Bedside Urine Blood Trace-intact H Bedside Urine Nitrite (LAB) Negative Bedside Urine Leukocyte Esterase Negative (L Prothrombin Time 14.8 Prothrombin Time Ratio 1.2 INR International Normalized Ratio 1.15 Phosphorus Level 3.8 Magnesium Level 1.4 L Thyroid Stimulating Hormone (TSH) 1.010 Hepatitis B Surface Antigen NEGATIVE Hepatitis B Core Total Antibody NEGATIVE Hepatitis C Antibody NEGATIVE Medications Medication Current Medications Sodium Chloride 1,000 ml @ 125 mls/hr Q8H IV Last administered on 03/13/19 06:30; Admin Dose 125 MLS/HR; Start 03/12/19 at 23:00 Piperacillin Sod/ Tazobactam Sod 100 ml @ 200 mls/hr Q6 IVPB Last administered on 03/13/19 13:31; Admin Dose 200 MLS/HR; Start 03/13/19 at 02:00 Acetaminophen (Tylenol Tab) 650 mg Q6H PRN PO MILD PAIN(1-3)OR ELEVATED TEMP Last administered on 03/13/19 02:11; Admin Dose 650 MG; Start 03/13/19 at 02:00 Hydromorphone HCl (Dilaudid) 0.2 mg PACU PRN IV MILD PAIN 1-3 Last administered on 8/10/19at 09:18; Admin Dose 0.2 MG; Start 03/13/19 at 09:00 Oxycodone/ Acetaminophen (Percocet (5/ 325)) 1 tab Q4H PRN PO .MILD PAIN (1-3); Start 03/13/19 at 09:00 Oxycodone/ Acetaminophen (Percocet (5/ 325)) 2 tab Q4H PRN PO .MODERATE PAIN (4-6); Start 03/13/19 at 09:00 Morphine Sulfate (morphine) 2 mg ONCE PRN IV .SEVERE PAIN 7-10; Start 03/13/19 at 09:00 Ondansetron HCl (Zofran Inj) 4 mg Q6H PRN IV NAUSEA/VOMITING; Start 03/13/19 at 09:00 Magnesium Sulfate 50 ml @ 25 mls/hr ONCE ONCE IVPB ; Start 03/13/19 at 15:30; Stop 03/13/19 at 17:29 DESI TINAJERO MD Mar 13, 2019 16:06
[2019-03-13] MEDS: OXYCODONE/ACETAMINOPHEN (5/325) TAB PO PRN (22:20)
[2019-03-14 02:16] VITALS: BP 102/56; PULSE 69; RESP 18
[2019-03-14] MEDS: SOD CHLORIDE 0.9% 1,000 ML IV SCH (03:25)
[2019-03-14] MEDS: PIPER-TAZO 3.375 GM IV (PMX) 100 ML IVPB SCH ×2 (05:45→11:59)
[2019-03-14 08:12] VITALS: BP 102/57; PULSE 59; RESP 17
--- NOTE | 2019-03-14 08:55 | QN ---
Documentation Comment Postoperative day #1 Symptomatically improved Abdominal examination is benign WBC down to 11,000 Plan: Discharge home today JONNA GUERRERO MD Mar 14, 2019 08:55
--- NOTE | 2019-03-14 11:06 | DS ---
Date/Time of Note Date/Time of Note DATE: 03/14/19 TIME: 11:04 Discharge Summary Admission/Discharge Info Admit Date/Time Mar 12, 2019 at 18:19 Discharge Date/Time Patient Condition: Stable Consults Trudi Procedures Laparoscopic appendectomy CT Abd Pelvis With Intravenous Contrast TECHNIQUE: Axial computed tomography images of the abdomen and pelvis with intravenous contrast. Sagittal and coronal reformatted images were created and reviewed. CTDIvol (mGy) = 14.57; total DLP (mGy-cm) = 914.30. This CT exam was performed using one or more of the following dose reduction techniques: automated exposure control, adjustment of the mA and/or kV according to patient size, and/or use of iterative reconstruction technique. DICOM images are available. CONTRAST: 100 mL of punctate 300 was administered intravenously. COMPARISON: None FINDINGS: LUNG BASES: Unremarkable. No mass. No consolidation. ABDOMEN: LIVER: Unremarkable. No mass. GALLBLADDER AND BILE DUCTS: Unremarkable. No calcified stones. No ductal dilation. PANCREAS: Unremarkable. No mass. No ductal dilation. SPLEEN: Unremarkable. No splenomegaly. ADRENALS: Unremarkable. No mass. KIDNEYS AND URETERS: Unremarkable. No solid mass. No hydronephrosis. STOMACH AND BOWEL: Unremarkable. No obstruction. No mucosal thickening. PELVIS: APPENDIX: The appendix is enlarged, measuring 14 mm in diameter. There is a 6.5 mm appendicolith in the proximal appendiceal lumen. Periappendiceal inflammation noted. The findings are consistent with acute appendicitis. BLADDER: Unremarkable. No mass. REPRODUCTIVE: Unremarkable as visualized. ABDOMEN and PELVIS: INTRAPERITONEAL SPACE: Unremarkable. No free air. No significant fluid collection. BONES/JOINTS: No acute fracture. No dislocation. SOFT TISSUES: Unremarkable. VASCULATURE: Unremarkable. LYMPH NODES: Unremarkable. No enlarged lymph nodes. IMPRESSION: The appendix 1.4 cm is enlarged, measuring 14 mm in diameter. There is a 6.5 mm appendicolith in the proximal appendiceal lumen. Periappendiceal inflammation noted. The findings are consistent with acute appendicitis. No appendiceal perforation or periappendiceal abscess demonstrated. Hx of Present Illness 28-year-old gentleman admitted with abdominal pain. Hospital Course A/P 1. Ac appendictis stable sp lap selena; discharge home. To follow-up with surgeon 1 week. 2. Diarrhea. likely benign antibiotic induced. Doubt, c diff. Test as indicated 3. Recent gastroenteritis? Consider viral or amoeba associated S; mod pain; no dyspnea or fever O: vss PE No pallor Reg no mrg Clear Bs dimin, tender. no r/r/g No edema rash Home Meds Active Scripts Ibuprofen* (Motrin*) 600 Mg Tab, 600 MG PO Q6H PRN for PAIN AND OR ELEVATED TEMP, #30 TAB Prov:ELISEO CORTEZ CNP 02/27/17 Reported Medications Amoxicillin Trihydrate (Amoxicillin) 500 Mg Tablet, 500 MG PO Q8, #30 TAB 03/12/19 Primary Care Provider Care Physician No Primary Time spent on discharge: > 30 minutes Pending Labs Laboratory Tests Test 03/14/19 08:08 White Blood Count 11.2 10^3/ul (4.8-10.8) Red Blood Count 4.16 10^6/ul (4.70-6.10) Hemoglobin 13.2 g/dl (14.0-18.0) Hematocrit 37.9 % (42.0-52.0) Mean Corpuscular Volume 91.1 fl (82.0-101.0) Mean Corpuscular Hemoglobin 31.7 pg (29.0-33.0) Mean Corpuscular Hemoglobin Concent 34.8 g/dl (32.0-37.0) Red Cell Distribution Width 12.1 % (11.5-14.5) Platelet Count 115 10^3/UL (140-415) Mean Platelet Volume 9.0 fl (7.4-10.4) Immature Granulocytes % 0.600 % (0.001-0.429) Neutrophils % 77.0 % (39.0-77.0) Lymphocytes % 13.6 % (15.0-51.0) Monocytes % 8.7 % (0.0-11.0) Eosinophils % 0.0 % (0.0-7.0) Basophils % 0.1 % (0.0-2.0) Nucleated Red Blood Cells % 0.0 /100WBC (0.0-0.0) Immature Granulocytes # 0.070 10^3/ul (0.0-0.031) Neutrophils # 8.6 10^3/ul (1.6-7.5) Lymphocytes # 1.5 10^3/ul (0.8-2.9) Monocytes # 1.0 10^3/ul (0.3-0.9) Eosinophils # 0.0 10^3/ul (0.0-0.5) Basophils # 0.0 10^3/ul (0.0-0.1) Nucleated Red Blood Cells # 0.0 10^3/ul (0.0-0.0) DESI TINAJERO MD Mar 14, 2019 11:06
--- NOTE | 2019-03-14 11:07 | PDOCDIS ---
Discharge Instructions CONDITION [id number] Patient Condition: [id number] Stable HOME CARE INSTRUCTIONS: [id number] Diet Instructions: [id number] Regular ACTIVITY: [id number] Activity Restrictions: [id number] Slowly Increase Activity Avoid heavy lifting FOLLOW UP/APPOINTMENTS Follow-up Plan Appointment Dr. Brush 1 week DESI TINAJERO MD Mar 14, 2019 11:07
[2019-03-14] MEDS: OXYCODONE/ACETAMINOPHEN (5/325) TAB PO PRN (11:59)
== END 2019-03-14 14:00 | disposition home or self-care (01) | DRG 343 ==
LOC: FTE 14:58 → 2NE 18:19
PROVIDERS: ADMIT Internal Medicine; ATTEND Internal Medicine
PROC: 0DTJ4ZZ Resection of Appendix, Percutaneous Endoscopic Approach (ICD-10-PCS; principal; 2019-03-13 07:30)
DX: K35.30 Acute appendicitis with localized peritonitis, without perforation or gangrene (principal); R19.7 Diarrhea, unspecified
CPT/HCPCS: 36415; 74177; 76705; 80053; 81003; 83690; 83735; 84100; 84443; 85025; 85610; 86704; 86709; 86803; 87340; 88304; 96361; 96365; 96375; 96376; J0690; J1100; J1170; J2250; J2270; J2405; J2543; J2710; J3010; J3475; J7030; Q9967